=== PATIENT | female | born 1940 | race Hispanic/Latino ===

== ENCOUNTER 2018-06-24 13:04 | Outpatient (CLI) | payer MEDICARE, OTHER | END 2018-06-24 13:05 | disposition home or self-care (01) | LOC: RAD 13:04 ==

== ENCOUNTER 2018-07-12 10:22 | Outpatient (CLI) | payer MEDICARE, OTHER | END 2018-07-12 10:23 | disposition home or self-care (01) | LOC: RAD 10:22 | DX: R92.2 Inconclusive mammogram (principal) ==

== ENCOUNTER 2018-07-28 13:04 | Outpatient (CLI) | payer MEDICARE | END 2018-07-28 13:05 | disposition home or self-care (01) | LOC: RAD 13:04 ==

== ENCOUNTER 2018-08-09 08:18 | Outpatient (CLI) | payer MEDICARE | END 2018-08-09 08:19 | disposition home or self-care (01) | LOC: LAB 08:18 ==